=== PATIENT | female | born 1995 | race Caucasian/White ===

== ENCOUNTER 2017-10-21 13:01 | Emergency (ER) | payer OTHER | END 2017-10-21 15:17 | disposition home or self-care (01) | LOC: E/R 13:01 | DX: T74.21XA Adult sexual abuse, confirmed, initial encounter (principal); R04.0 Epistaxis; F43.0 Acute stress reaction; F17.210 Nicotine dependence, cigarettes, uncomplicated | CPT/HCPCS: 99282 ==

== ENCOUNTER 2017-10-21 20:02 | Emergency (ER) | payer OTHER ==
[2017-10-21] MEDS: LORAZEPAM 1 MG TAB PO (20:37)
[2017-10-21] MEDS: ONDANSETRON (ODT) 4 MG TAB ODT (20:37)
== END 2017-10-21 22:15 | disposition home or self-care (01) ==
LOC: E/R 20:02
DX: F43.10 Post-traumatic stress disorder, unspecified (principal)
CPT/HCPCS: 99283